=== PATIENT | male | born 1935 | race Caucasian/White ===

== ENCOUNTER 2017-03-21 14:20 | Inpatient (IN) | payer MEDICARE ==
[2017-03-21] VITALS (24 sets, daily range): BP systolic 80–156; BP diastolic 39–98
[~2017-03-21] VITALS: Ht 172.7 cm; Wt 64.4 kg
[~2017-03-21 14:20] MED LIST: ALLO100T PO; AMLO10TA80 PO; CARV6.2548 PO; CYCL10TA7 PO; FINA5TAB11 PO; HYDR-4135 PO; LOVA40TA73 PO; NEPVIT PO; OMEP40CA34 PO; SEVE800T8 PO
[2017-03-21] MEDS ORDERED: STERILE WATER FOR INJECTION 10ML VIAL ONE (14:30)
[2017-03-21] MEDS ORDERED: ETOMIDATE 2MG/ML 10ML VIAL IV ONE (14:30)
[2017-03-21] MEDS ORDERED: VECURONIUM BROMIDE 10 MG/VIAL IV ONE (14:30)
[2017-03-21] MEDS ORDERED: SUCCINYLCHOLINE CHLORIDE 200MG/10ML IV ONE (14:30)
[2017-03-21] MEDS ORDERED: NOREPINEPHRINE 4 MG in DEXT 5% WATER 246 ML IV ONE ×2 (14:45→15:30)
[2017-03-21] MEDS ORDERED: SODIUM BICARBONATE 8.4% 1 MEQ/ML 50ML SYR IV ONE (15:30)
[2017-03-21] MEDS ORDERED: OSELTAMIVIR 75MG CAPSULE NG ONE (15:45)
[2017-03-21] MEDS ORDERED: VANCOMYCIN 1 G PREMIX 200 ML IV SCH (15:45)
[2017-03-21] MEDS ORDERED: PIPERACILLIN/TAZ 3.375G PREMIX 50 ML IV ONE (15:45)
[2017-03-21] MEDS ORDERED: PROPOFOL 10MG/ML 100ML 100 ML IV SCH (15:45)
[2017-03-21 15:52] LABS: HEMATOCRIT. 25.5 % (42.0-52.0); HEMOGLOBIN. 8.3 g/dL (14.0-18.0); INR 1.1; MEAN CORPUSCULAR HEMOGLOBIN 32.4 pg (28.0-32.0); MEAN CORPUSCULAR VOLUME 99.1 fL (80.0-94.0); MEAN PLATELET VOLUME 8.5 fl (7.4-10.4); PLATELET 135 x1000/uL (130-400); PROTHROMBIN TIME 11.3 sec (9.4-11.6); RED BLOOD CELL COUNT 2.57 mill/uL (4.7-6.1); RED CELL DISTRIBUTION WIDTH 15.8 % (11.6-14.6)
[2017-03-21 16:04] LABS: CHLORIDE 101 mEq/L (98-107)
[2017-03-21 16:54] LABS: PLATELET ESTIMATE NORMAL
[2017-03-21 17:24] LABS: BG CARBOXYHEMOGLOBIN 3.2 % (0.5-1.5); BG DEOXYHEMOGLOBIN 0.2 % (0.0-5.0); BG FRACTION INSPIRED OXYGEN 100; BG HCO3 ACT 23.9 mmol/L (22.0-26.0); BG METHEMOGLOBIN 0.2 % (0.0-1.5); BG OXYGEN SATURATION 99.8 % (92.0-98.5); BG OXYHEMOGLOBIN 96.4 % (94.0-97.0); BG PCO2 35.4 mmHg (35.0-45.0); BG PH 7.447 (7.350-7.450); BG PO2 438.5 mmHg (75.0-100.0); BG SAMPLE SITE RIGHT BRACHIAL; BG TIDAL VOLUME(mL) 500 mL; BG TOTAL HEMOGLOBIN 8.2 g/dL (12.0-18.0); BG VENT MODE VENT - A/C; BG VENT RATE 16 set
[2017-03-21] MEDS ORDERED: ASPIRIN 300MG SUPP PR ONE (18:00)
[2017-03-21] MEDS ORDERED: DEXTROSE 50% WATER 50ML SYRINGE IV NR ×2 (20:15→20:30)
[2017-03-21] MEDS ORDERED: DEXTROSE 50% WATER 50ML SYRINGE IV ONE (20:17)
[2017-03-21] MEDS ORDERED: DEXTROSE 10% WATER 1,000 ML IV SCH (20:30)
[2017-03-21] MEDS ORDERED: BLOOD SUGAR DIAGNOSTIC STRIP TEST SCH (20:30)
[2017-03-21] MEDS: BLOOD SUGAR DIAGNOSTIC STRIP TEST SCH ×3 (21:00→23:00)
[2017-03-21] MEDS ORDERED: ONDANSETRON HCL 4MG/2ML INJ IV PRN (21:30)
[2017-03-21] MEDS: MORPHINE SULFATE 4 MG/ML CPJ (NOT FOR IM USE) IV PRN (22:31)
[2017-03-21] MEDS: DEXTROSE 50% WATER 50ML SYRINGE IV PRN (23:34)
[2017-03-21 23:49] LABS: T4 FREE 0.88 ng/dL (0.76-1.46)
[2017-03-21 23:58] LABS: CREATINE KINASE MB FRACTION 5.9 ng/mL (0.5-3.6)
[2017-03-22] VITALS (98 sets, daily range): BP systolic 87–145; BP diastolic 41–82
[2017-03-22] MEDS: DEXTROSE 50% WATER 50ML SYRINGE IV PRN ×4 (00:44→13:36)
[2017-03-22] MEDS: BLOOD SUGAR DIAGNOSTIC STRIP TEST SCH ×24 (00:44→23:00)
[2017-03-22] MEDS ORDERED: NOREPINEPHRINE 8 MG in DEXT 5% WATER 242 ML IV PRN (03:45)
[2017-03-22] MEDS ORDERED: OMEP40CA34 PO (04:21)
[2017-03-22] MEDS ORDERED: GABA-529 PO (04:21)
[2017-03-22] MEDS ORDERED: CARV3.1242 PO (04:21)
[2017-03-22] MEDS ORDERED: CALC667T5 PO (04:21)
[2017-03-22] MEDS ORDERED: ASPI-1159 PO (04:21)
[2017-03-22] MEDS ORDERED: ATOR20TA65 PO (04:21)
[2017-03-22] MEDS ORDERED: TAMS0.4C31 PO (04:21)
[2017-03-22 05:36] LABS: HEMATOCRIT. 23.9 % (42.0-52.0); HEMOGLOBIN. 7.7 g/dL (14.0-18.0); MEAN CORPUSCULAR HEMOGLOBIN 31.8 pg (28.0-32.0); MEAN CORPUSCULAR VOLUME 98.3 fL (80.0-94.0); MEAN PLATELET VOLUME 8.7 fl (7.4-10.4); PLATELET 169 x1000/uL (130-400); RED BLOOD CELL COUNT 2.43 mill/uL (4.7-6.1); RED CELL DISTRIBUTION WIDTH 15.9 % (11.6-14.6)
[2017-03-22 06:22] LABS: CHLORIDE 97 mEq/L (98-107); CREATINE KINASE 31 IU/L (39-308); CREATINE KINASE MB FRACTION 3.6 ng/mL (0.5-3.6); HDL CHOLESTEROL 59 mg/dL (40-59); LDL CHOLESTEROL 31 mg/dL (5-100)
[2017-03-22 07:08] LABS: BG BASE EXCESS 7.1 mmol/L (-2.0-2.0); BG CARBOXYHEMOGLOBIN 3.7 % (0.5-1.5); BG DEOXYHEMOGLOBIN 0.3 % (0.0-5.0); BG METHEMOGLOBIN 0.3 % (0.0-1.5); BG OXYGEN SATURATION 99.7 % (92.0-98.5); BG OXYHEMOGLOBIN 95.7 % (94.0-97.0); BG PCO2 41.3 mmHg (35.0-45.0); BG PH 7.493 (7.350-7.450); BG PO2 163.1 mmHg (75.0-100.0); BG SAMPLE SITE RIGHT BRACHIAL; BG TIDAL VOLUME(mL) 500 mL; BG TOTAL HEMOGLOBIN 7.5 g/dL (12.0-18.0); BG VENT MODE VENT - A/C; BG VENT RATE 16 set
[2017-03-22] MEDS: PANTOPRAZOLE SODIUM 40 MG/VIAL IV SCH (11:03)
[2017-03-22] MEDS: ASPIRIN 81MG EC TABLET PO SCH (11:07)
[2017-03-22] MEDS ORDERED: DEXTROSE 10% WATER 1000ML IV SCH (11:15)
[2017-03-22 11:48] LABS: NUCLEATED RED BLOOD CELLS 1 /100 WBC
[2017-03-22 11:50] LABS: PLATELET ESTIMATE NORMAL
[2017-03-22] MEDS: MORPHINE SULFATE 4 MG/ML CPJ (NOT FOR IM USE) IV PRN (13:31)
[2017-03-22] MEDS ORDERED: VANCOMYCIN 1500MG in DEXTROSE 5% WATER 250ML IV SCH (16:00)
[2017-03-22] MEDS: LORAZEPAM 2MG/ML CPJ IV PRN (20:58)
[2017-03-22] MEDS: HEPARIN 5000 UNITS/ML VIAL SUBCUT SCH (22:24)
[2017-03-23] VITALS (56 sets, daily range): BP systolic 90–175; BP diastolic 38–116
[2017-03-23] MEDS: BLOOD SUGAR DIAGNOSTIC STRIP TEST SCH ×4 (00:51→20:00)
[2017-03-23 05:32] LABS: HEMATOCRIT 22.5 % (42.0-52.0); HEMOGLOBIN 7.3 g/dL (14.0-18.0); MEAN CORPUSCULAR HEMOGLOBIN 31.3 pg (28.0-32.0); PLATELET 150 x1000/uL (130-400); RED BLOOD CELL COUNT 2.32 mill/uL (4.7-6.1); RED CELL DISTRIBUTION WIDTH 16.5 % (11.6-14.6)
[2017-03-23] MEDS ORDERED: BLOOD SUGAR DIAGNOSTIC STRIP TEST SCH (08:00)
[2017-03-23] MEDS: PANTOPRAZOLE SODIUM 40 MG/VIAL IV SCH (08:57)
[2017-03-23] MEDS: ASPIRIN 81MG EC TABLET PO SCH (08:57)
[2017-03-23] MEDS: HEPARIN 5000 UNITS/ML VIAL SUBCUT SCH ×2 (09:00→21:43)
[2017-03-23] MEDS: LORAZEPAM 2MG/ML CPJ IV PRN (15:15)
[2017-03-23] MEDS ORDERED: METHYLPREDNISOLONE SOD SUCC 40 MG/ML VIAL IV NR (18:37)
[2017-03-23] MEDS: MORPHINE SULFATE 4 MG/ML CPJ (NOT FOR IM USE) IV PRN (20:14)
[2017-03-23 20:39] LABS: BG BASE EXCESS 3.1 mmol/L (-2.0-2.0); BG DEOXYHEMOGLOBIN 11.8 % (0.0-5.0); BG FRACTION INSPIRED OXYGEN 40; BG HCO3 ACT 28.3 mmol/L (22.0-26.0); BG METHEMOGLOBIN 0.3 % (0.0-1.5); BG OXYGEN SATURATION 87.8 % (92.0-98.5); BG OXYHEMOGLOBIN 84.9 % (94.0-97.0); BG PH 7.398 (7.350-7.450); BG PO2 55.7 mmHg (75.0-100.0); BG PRESSURE SUPPORT 10; BG SAMPLE SITE LEFT RADIAL; BG TOTAL HEMOGLOBIN 7.8 g/dL (12.0-18.0); BG VENT MODE VENT - CPAP
[2017-03-23] MEDS ORDERED: ACETAMINOPHEN 650MG/20.3ML UDC PO PRN (21:15)
[2017-03-24] VITALS (24 sets, daily range): BP systolic 88–125; BP diastolic 36–60
[2017-03-24] MEDS: PIPERACILLIN/TAZOBACTAM 2.25 G in DEXTROSE 5% WATER 50 ML IV SCH ×3 (02:21→18:00)
[2017-03-24] MEDS: BLOOD SUGAR DIAGNOSTIC STRIP TEST SCH ×6 (04:40→20:00)
[2017-03-24 06:27] LABS: HEMATOCRIT. 24.8 % (42.0-52.0); HEMOGLOBIN. 8.1 g/dL (14.0-18.0); MEAN CORPUSCULAR HEMOGLOBIN 31.1 pg (28.0-32.0); MEAN CORPUSCULAR VOLUME 94.9 fL (80.0-94.0); MEAN PLATELET VOLUME 8.9 fl (7.4-10.4); PLATELET 143 x1000/uL (130-400); RED BLOOD CELL COUNT 2.62 mill/uL (4.7-6.1)
[2017-03-24 07:53] LABS: BG BASE EXCESS 0.7 mmol/L (-2.0-2.0); BG CARBOXYHEMOGLOBIN 1.8 % (0.5-1.5); BG DEOXYHEMOGLOBIN 0.2 % (0.0-5.0); BG FRACTION INSPIRED OXYGEN 50; BG HCO3 ACT 27.7 mmol/L (22.0-26.0); BG METHEMOGLOBIN 0.2 % (0.0-1.5); BG OXYGEN SATURATION 99.8 % (92.0-98.5); BG OXYHEMOGLOBIN 97.8 % (94.0-97.0); BG PCO2 58.3 mmHg (35.0-45.0); BG PH 7.295 (7.350-7.450); BG PO2 196.4 mmHg (75.0-100.0); BG PRESSURE SUPPORT 10; BG SAMPLE SITE RIGHT RADIAL; BG TOTAL HEMOGLOBIN 8.6 g/dL (12.0-18.0); BG VENT MODE VENT - CPAP
[2017-03-24 08:21] LABS: PLATELET ESTIMATE NORMAL
[2017-03-24] MEDS: PANTOPRAZOLE SODIUM 40 MG/VIAL IV SCH (09:00)
[2017-03-24] MEDS: ASPIRIN 81MG EC TABLET PO SCH (09:01)
[2017-03-24] MEDS: HEPARIN 5000 UNITS/ML VIAL SUBCUT SCH ×2 (09:01→22:34)
[2017-03-24 12:58] LABS: BG BASE EXCESS 0.6 mmol/L (-2.0-2.0); BG DEOXYHEMOGLOBIN 0.7 % (0.0-5.0); BG FRACTION INSPIRED OXYGEN 40; BG HCO3 ACT 27.4 mmol/L (22.0-26.0); BG METHEMOGLOBIN 0.2 % (0.0-1.5); BG OXYGEN SATURATION 99.3 % (92.0-98.5); BG OXYHEMOGLOBIN 96.1 % (94.0-97.0); BG PCO2 56.6 mmHg (35.0-45.0); BG PH 7.303 (7.350-7.450); BG PO2 125.5 mmHg (75.0-100.0); BG PRESSURE SUPPORT 10; BG SAMPLE SITE RIGHT RADIAL; BG TOTAL HEMOGLOBIN 8.5 g/dL (12.0-18.0); BG VENT MODE VENT - CPAP
[2017-03-24] MEDS ORDERED: METOCLOPRAMIDE HCL 10MG/2ML VIAL IV SCH (18:00)
[2017-03-24] MEDS ORDERED: METOCLOPRAMIDE 10MG/10 ML UDC PO PRN (19:30)
[2017-03-24 21:29] LABS: BG BASE EXCESS -0.1 mmol/L (-2.0-2.0); BG DEOXYHEMOGLOBIN 4.2 % (0.0-5.0); BG FRACTION INSPIRED OXYGEN 40; BG HCO3 ACT 27.6 mmol/L (22.0-26.0); BG METHEMOGLOBIN 0.2 % (0.0-1.5); BG OXYGEN SATURATION 95.7 % (92.0-98.5); BG OXYHEMOGLOBIN 93.6 % (94.0-97.0); BG PCO2 62.6 mmHg (35.0-45.0); BG PH 7.262 (7.350-7.450); BG PO2 86.7 mmHg (75.0-100.0); BG SAMPLE SITE RIGHT RADIAL; BG TOTAL HEMOGLOBIN 9.1 g/dL (12.0-18.0); BG VENT MODE MASK - AEROSOL
[2017-03-24] MEDS: EPOETIN ALFA 4000UNITS/ML VIAL SUBCUT SCH (22:34)
[2017-03-25] VITALS (35 sets, daily range): BP systolic 79–117; BP diastolic 42–87
[2017-03-25] MEDS: PIPERACILLIN/TAZOBACTAM 2.25 G in DEXTROSE 5% WATER 50 ML IV SCH ×2 (01:52→10:06)
[2017-03-25] MEDS: BLOOD SUGAR DIAGNOSTIC STRIP TEST SCH ×6 (04:00→20:00)
[2017-03-25 04:44] LABS: HEMATOCRIT. 26.3 % (42.0-52.0); HEMOGLOBIN. 8.5 g/dL (14.0-18.0); MEAN CORPUSCULAR HEMOGLOBIN 30.9 pg (28.0-32.0); MEAN CORPUSCULAR VOLUME 95.5 fL (80.0-94.0); MEAN PLATELET VOLUME 8.5 fl (7.4-10.4); PLATELET 136 x1000/uL (130-400); RED BLOOD CELL COUNT 2.75 mill/uL (4.7-6.1); RED CELL DISTRIBUTION WIDTH 17.6 % (11.6-14.6)
[2017-03-25 05:14] LABS: BG BASE EXCESS -2.6 mmol/L (-2.0-2.0); BG CARBOXYHEMOGLOBIN 2.3 % (0.5-1.5); BG DEOXYHEMOGLOBIN 1.6 % (0.0-5.0); BG FRACTION INSPIRED OXYGEN 35; BG HCO3 ACT 23.6 mmol/L (22.0-26.0); BG METHEMOGLOBIN 0.2 % (0.0-1.5); BG OXYGEN SATURATION 98.4 % (92.0-98.5); BG OXYHEMOGLOBIN 95.9 % (94.0-97.0); BG PCO2 47.9 mmHg (35.0-45.0); BG PH 7.311 (7.350-7.450); BG PO2 110.7 mmHg (75.0-100.0); BG SAMPLE SITE RIGHT RADIAL; BG VENT MODE MASK - BIPAP; BG VENT RATE 16 set
[2017-03-25] MEDS ORDERED: ALBUMIN HUMAN 25GM/100ML (25%) IV SCH (05:45)
[2017-03-25 06:16] LABS: PHOSPHORUS 6.2 mg/dL (2.5-4.9)
[2017-03-25] MEDS: HEPARIN 5000 UNITS/ML VIAL SUBCUT SCH ×2 (10:06→21:00)
[2017-03-25] MEDS: PANTOPRAZOLE SODIUM 40 MG/VIAL IV SCH (10:06)
[2017-03-25] MEDS: ASPIRIN 81MG EC TABLET PO SCH (10:06)
[2017-03-25 10:09] LABS: PLATELET ESTIMATE NORMAL
[2017-03-25] MEDS ORDERED: VANCOMYCIN 1 G PREMIX 200 ML IV NR ×2 (13:00→16:00)
[2017-03-25] MEDS: PIPERACILLIN/TAZ 2.25G PREMIX 50 ML IV SCH (19:27)
[2017-03-26] VITALS (16 sets, daily range): BP systolic 96–120; BP diastolic 36–61
[2017-03-26] MEDS: PIPERACILLIN/TAZ 2.25G PREMIX 50 ML IV SCH ×3 (01:57→17:05)
[2017-03-26] MEDS: BLOOD SUGAR DIAGNOSTIC STRIP TEST SCH ×5 (04:00→20:44)
[2017-03-26] MEDS: PANTOPRAZOLE SODIUM 40 MG/VIAL IV SCH (08:26)
[2017-03-26] MEDS: ASPIRIN 81MG EC TABLET PO SCH (08:26)
[2017-03-26] MEDS: HEPARIN 5000 UNITS/ML VIAL SUBCUT SCH ×2 (09:29→21:06)
[2017-03-26] MEDS: EPOETIN ALFA 4000UNITS/ML VIAL SUBCUT SCH (21:47)
[2017-03-27] VITALS (12 sets, daily range): BP systolic 102–141; BP diastolic 43–70
[2017-03-27] MEDS: PIPERACILLIN/TAZ 2.25G PREMIX 50 ML IV SCH ×3 (01:49→17:08)
[2017-03-27 06:19] LABS: BASOPHILS % 0.2 % (0.0-2.0); EOSINOPHILS % 2.3 % (0.0-5.0); HEMATOCRIT. 26.9 % (42.0-52.0); HEMOGLOBIN. 8.6 g/dL (14.0-18.0); LYMPHOCYTES % 8.2 % (20.0-50.0); MEAN CORPUSCULAR HEMOGLOBIN 30.4 pg (28.0-32.0); MEAN CORPUSCULAR VOLUME 95.1 fL (80.0-94.0); MEAN PLATELET VOLUME 9.2 fl (7.4-10.4); MONOCYTES % 6.2 % (2.0-8.0); NEUTROPHILS % 83.1 % (40.0-76.0); PLATELET 175 x1000/uL (130-400); RED BLOOD CELL COUNT 2.83 mill/uL (4.7-6.1); RED CELL DISTRIBUTION WIDTH 17.2 % (11.6-14.6)
[2017-03-27] MEDS: BLOOD SUGAR DIAGNOSTIC STRIP TEST SCH ×4 (06:54→21:28)
[2017-03-27] MEDS: PANTOPRAZOLE SODIUM 40 MG/VIAL IV SCH (08:18)
[2017-03-27] MEDS: ASPIRIN 81MG EC TABLET PO SCH (08:18)
[2017-03-27] MEDS: HEPARIN 5000 UNITS/ML VIAL SUBCUT SCH ×2 (08:19→21:28)
[2017-03-27 14:49] LABS: BG BASE EXCESS 3.5 mmol/L (-2.0-2.0); BG CARBOXYHEMOGLOBIN 2.6 % (0.5-1.5); BG DEOXYHEMOGLOBIN 3.7 % (0.0-5.0); BG FRACTION INSPIRED OXYGEN 28; BG HCO3 ACT 29.9 mmol/L (22.0-26.0); BG METHEMOGLOBIN 0.3 % (0.0-1.5); BG OXYGEN SATURATION 96.2 % (92.0-98.5); BG OXYHEMOGLOBIN 93.4 % (94.0-97.0); BG PCO2 55.9 mmHg (35.0-45.0); BG PH 7.346 (7.350-7.450); BG PO2 82.8 mmHg (75.0-100.0); BG SAMPLE SITE RIGHT BRACHIAL; BG VENT MODE NASAL CANNULA
[2017-03-28] VITALS (12 sets, daily range): BP systolic 126–147; BP diastolic 57–79
[2017-03-28] MEDS: PIPERACILLIN/TAZ 2.25G PREMIX 50 ML IV SCH ×3 (01:34→17:10)
[2017-03-28] MEDS: BLOOD SUGAR DIAGNOSTIC STRIP TEST SCH ×4 (06:38→20:43)
[2017-03-28] MEDS: ASPIRIN 81MG EC TABLET PO SCH (08:29)
[2017-03-28] MEDS: HEPARIN 5000 UNITS/ML VIAL SUBCUT SCH ×2 (08:29→20:11)
[2017-03-28] MEDS: PANTOPRAZOLE SODIUM 40 MG/VIAL IV SCH (08:29)
[2017-03-28 15:20] LABS: HEMATOCRIT. 24.7 % (42.0-52.0); HEMOGLOBIN. 8.1 g/dL (14.0-18.0); MEAN CORPUSCULAR VOLUME 94.7 fL (80.0-94.0); PLATELET 174 x1000/uL (130-400); RED BLOOD CELL COUNT 2.61 mill/uL (4.7-6.1); RED CELL DISTRIBUTION WIDTH 17.2 % (11.6-14.6)
[2017-03-28 16:08] LABS: ATYPICAL LYMPHOCYTES 1; PLATELET ESTIMATE NORMAL
[2017-03-28] MEDS ORDERED: VANCOMYCIN 500 MG PREMIX 100 ML IV SCH (20:00)
[2017-03-29] VITALS (12 sets, daily range): BP systolic 116–146; BP diastolic 50–73
[2017-03-29] MEDS: PIPERACILLIN/TAZ 2.25G PREMIX 50 ML IV SCH ×3 (02:04→17:01)
[2017-03-29] MEDS: BLOOD SUGAR DIAGNOSTIC STRIP TEST SCH ×4 (06:24→21:07)
[2017-03-29 06:37] LABS: HEMATOCRIT. 26.2 % (42.0-52.0); HEMOGLOBIN. 8.7 g/dL (14.0-18.0); MEAN CORPUSCULAR HEMOGLOBIN 31.5 pg (28.0-32.0); MEAN CORPUSCULAR VOLUME 94.8 fL (80.0-94.0); MEAN PLATELET VOLUME 9.3 fl (7.4-10.4); PLATELET 185 x1000/uL (130-400); RED BLOOD CELL COUNT 2.76 mill/uL (4.7-6.1); RED CELL DISTRIBUTION WIDTH 17.5 % (11.6-14.6)
[2017-03-29] MEDS ORDERED: NITROGLYCERIN 0.4MG TABLET SL SL ONE (08:01)
[2017-03-29] MEDS: PANTOPRAZOLE SODIUM 40 MG/VIAL IV SCH (08:24)
[2017-03-29] MEDS: HEPARIN 5000 UNITS/ML VIAL SUBCUT SCH (08:24)
[2017-03-29] MEDS: ASPIRIN 81MG EC TABLET PO SCH (08:24)
[2017-03-29] MEDS ORDERED: HYDROCODONE/ACETAMINOPHEN 5/325MG TABLET PO PRN (08:30)
[2017-03-29] MEDS ORDERED: IODIXANOL 320MG/ML 100 ML BOTTLE IV ONE (12:52)
[2017-03-29] MEDS ORDERED: HEPARIN 1,000 UNITS PREMIX 0 ML IV ONE (12:53)
[2017-03-29] MEDS ORDERED: LIDOCAINE HCL 1% 20ML VIAL (Pyxis) INJ ONE (12:53)
[2017-03-29] MEDS ORDERED: FENTANYL CITRATE/PF 50MCG/ML 2ML VIAL ONE (14:23)
[2017-03-29] MEDS ORDERED: MIDAZOLAM HCL 2 MG/2 ML VIAL ONE (14:23)
[2017-03-29 14:57] LABS: PLATELET ESTIMATE NORMAL
[2017-03-29] MEDS ORDERED: ATROPINE SULFATE 1MG/10ML SYR IV PRN (15:15)
[2017-03-29] MEDS ORDERED: ACETAMINOPHEN 325MG TABLET PO PRN (15:15)
[2017-03-29] MEDS: EPOETIN ALFA 4000UNITS/ML VIAL SUBCUT SCH (21:00)
[2017-03-29] MEDS: ATORVASTATIN CALCIUM 20MG TABLET PO SCH (21:42)
[2017-03-29] MEDS: CARVEDILOL 6.25 MG TABLET PO SCH (21:42)
[2017-03-29] MEDS ORDERED: EPOETIN ALFA 4000UNITS/ML VIAL SUBCUT SCH (23:30)
[2017-03-30] VITALS (20 sets, daily range): BP systolic 106–128; BP diastolic 46–66
[2017-03-30] MEDS: PIPERACILLIN/TAZ 2.25G PREMIX 50 ML IV SCH ×3 (02:31→17:20)
[2017-03-30] MEDS: BLOOD SUGAR DIAGNOSTIC STRIP TEST SCH ×4 (06:11→21:00)
[2017-03-30 06:53] LABS: BASOPHILS % 0.6 % (0.0-2.0); EOSINOPHILS % 3.9 % (0.0-5.0); HEMOGLOBIN. 7.6 g/dL (14.0-18.0); LYMPHOCYTES % 7.5 % (20.0-50.0); MEAN CORPUSCULAR HEMOGLOBIN 31.7 pg (28.0-32.0); MEAN CORPUSCULAR VOLUME 95.7 fL (80.0-94.0); MEAN PLATELET VOLUME 9.4 fl (7.4-10.4); MONOCYTES % 5.9 % (2.0-8.0); NEUTROPHILS % 82.1 % (40.0-76.0); PLATELET 150 x1000/uL (130-400); RED CELL DISTRIBUTION WIDTH 17.5 % (11.6-14.6)
[2017-03-30] MEDS: ASPIRIN 81MG EC TABLET PO SCH (08:26)
[2017-03-30] MEDS: FAMOTIDINE 20MG TABLET PO SCH (08:26)
[2017-03-30] MEDS: CARVEDILOL 6.25 MG TABLET PO SCH ×2 (08:27→22:10)
[2017-03-30] MEDS ORDERED: IPRATROPIUM/ALBUTEROL 0.5-3(2.5)MG/3ML NEB HHN PRN (16:15)
[2017-03-30] MEDS ORDERED: FUROSEMIDE 40MG/4ML VIAL IVP NR (16:22)
[2017-03-30] MEDS: ATORVASTATIN CALCIUM 20MG TABLET PO SCH (20:54)
[2017-03-31] VITALS (31 sets, daily range): BP systolic 100–139; BP diastolic 31–63
[2017-03-31] MEDS: PIPERACILLIN/TAZ 2.25G PREMIX 50 ML IV SCH ×3 (02:02→18:28)
[2017-03-31] MEDS: BLOOD SUGAR DIAGNOSTIC STRIP TEST SCH ×2 (05:54→11:22)
[2017-03-31 06:10] LABS: HEMATOCRIT. 27.3 % (42.0-52.0); MEAN CORPUSCULAR VOLUME 94.7 fL (80.0-94.0); PLATELET 138 x1000/uL (130-400); RED BLOOD CELL COUNT 2.89 mill/uL (4.7-6.1); RED CELL DISTRIBUTION WIDTH 17.5 % (11.6-14.6)
[2017-03-31 07:49] LABS: NUCLEATED RED BLOOD CELLS 1 /100 WBC
[2017-03-31 07:50] LABS: PLATELET ESTIMATE NORMAL
[2017-03-31] MEDS: FAMOTIDINE 20MG TABLET PO SCH (08:02)
[2017-03-31] MEDS: ASPIRIN 81MG EC TABLET PO SCH (08:02)
[2017-03-31] MEDS: CARVEDILOL 6.25 MG TABLET PO SCH (08:03)
== END 2017-03-31 19:30 | DRG 871 ==
LOC: ER 14:26 → EDBEDREQSVC 15:29 → EDBEDREQ 15:29 → EDBEDREQTM 15:29 → ENRESERV 15:48 → CVICU 17:55 → EDBEDREQTM 17:59 → EDBEDREQ 17:59 → 3WST 03-26 01:28
PROVIDERS: ADMIT Internal Medicine; ATTEND Internal Medicine
PROC: 5A1945Z Respiratory Ventilation, 24-96 Consecutive Hours (ICD-10-PCS; principal; 2017-03-21)
PROC: 0BH17EZ Insertion of Endotracheal Airway into Trachea, Via Natural or Artificial Opening (ICD-10-PCS; 2017-03-21)
PROC: 5A1D70Z Performance of Urinary Filtration, Intermittent, Less than 6 Hours Per Day (ICD-10-PCS; 2017-03-22)
PROC: 30233N1 Transfusion of Nonautologous Red Blood Cells into Peripheral Vein, Percutaneous Approach (ICD-10-PCS; 2017-03-23)
PROC: 5A1D70Z Performance of Urinary Filtration, Intermittent, Less than 6 Hours Per Day (ICD-10-PCS; 2017-03-23)
PROC: 5A1D70Z Performance of Urinary Filtration, Intermittent, Less than 6 Hours Per Day (ICD-10-PCS; 2017-03-25)
PROC: 5A1D70Z Performance of Urinary Filtration, Intermittent, Less than 6 Hours Per Day (ICD-10-PCS; 2017-03-27)
PROC: 4A023N7 Measurement of Cardiac Sampling and Pressure, Left Heart, Percutaneous Approach (ICD-10-PCS; 2017-03-29)
PROC: B2111ZZ Fluoroscopy of Multiple Coronary Arteries using Low Osmolar Contrast (ICD-10-PCS; 2017-03-29)
PROC: B2151ZZ Fluoroscopy of Left Heart using Low Osmolar Contrast (ICD-10-PCS; 2017-03-29)
PROC: 5A1D70Z Performance of Urinary Filtration, Intermittent, Less than 6 Hours Per Day (ICD-10-PCS; 2017-03-29)
PROC: 5A1D70Z Performance of Urinary Filtration, Intermittent, Less than 6 Hours Per Day (ICD-10-PCS; 2017-03-30)
PROC: 5A1D70Z Performance of Urinary Filtration, Intermittent, Less than 6 Hours Per Day (ICD-10-PCS; 2017-03-31)
DX: A41.9 Sepsis, unspecified organism (principal); J18.9 Pneumonia, unspecified organism; I21.4 Non-ST elevation (NSTEMI) myocardial infarction; J96.91 Respiratory failure, unspecified with hypoxia; E43 Unspecified severe protein-calorie malnutrition; R65.21 Severe sepsis with septic shock; G92 Toxic encephalopathy; J90 Pleural effusion, not elsewhere classified; E11.22 Type 2 diabetes mellitus with diabetic chronic kidney disease; N18.6 End stage renal disease; I12.0 Hypertensive chronic kidney disease with stage 5 chronic kidney disease or end stage renal disease; I25.110 Atherosclerotic heart disease of native coronary artery with unstable angina pectoris; N25.81 Secondary hyperparathyroidism of renal origin; E11.649 Type 2 diabetes mellitus with hypoglycemia without coma; D64.9 Anemia, unspecified; E78.5 Hyperlipidemia, unspecified; M19.90 Unspecified osteoarthritis, unspecified site; Z99.2 Dependence on renal dialysis; I25.2 Old myocardial infarction; Z79.899 Other long term (current) drug therapy; Z86.73 Personal history of transient ischemic attack (TIA), and cerebral infarction without residual deficits; Z88.5 Allergy status to narcotic agent; Z88.6 Allergy status to analgesic agent; Z88.1 Allergy status to other antibiotic agents; Z88.8 Allergy status to other drugs, medicaments and biological substances; Z68.21 Body mass index [BMI] 21.0-21.9, adult
CPT/HCPCS: 31500; 36415; 36556; 36600; 71045; 71275; 80048; 80061; 80202; 82140; 82375; 82533; 82550; 82553; 82805; 82962; 83605; 83735; 83880; 84100; 84439; 84443; 84484; 85027; 86850; 86900; 86920; 87070; 87804; 93005; 93306; 93458; 93971; 94002; 94003; 94640; 94660; 96365; 96366; 96368; 96375; 97162; 99291; A4216; C1760; C1769; C1887; C1893; C9113; J0330; J0885; J1644; J1940; J2060; J2250; J2270; J2543; J2920; J3010; J3370; J3490; J7030; J7050; J7060; J7620; J8597; P9016; P9047; Q9967; A4315

== ENCOUNTER 2017-04-05 10:39 | Inpatient (IN) | payer MEDICARE ==
[~2017-04-05] VITALS: Ht 167.6 cm; Wt 61.2 kg
[~2017-04-05 10:39] MED LIST changes: +ASPI-1159 PO; +ATOR20TA65 PO; +CALC667T5 PO; +CARV3.1242 PO; -CARV6.2548 PO; +GABA-529 PO; +TAMS0.4C31 PO
[2017-04-05] MEDS ORDERED: NITROGLYCERIN OINT 1GM/INCH UDPKT TD STA (10:50)
[2017-04-05] MEDS ORDERED: ASPIRIN 81MG TABLET PO STA (10:50)
[2017-04-05 11:20] LABS: HEMATOCRIT. 30.8 % (42.0-52.0); MEAN CORPUSCULAR HEMOGLOBIN 30.8 pg (28.0-32.0); MEAN CORPUSCULAR VOLUME 95.2 fL (80.0-94.0); MEAN PLATELET VOLUME 9.5 fl (7.4-10.4); PLATELET 157 x1000/uL (130-400); RED BLOOD CELL COUNT 3.23 mill/uL (4.7-6.1); RED CELL DISTRIBUTION WIDTH 18.4 % (11.6-14.6)
[2017-04-05 11:29] LABS: INR 1.1; PARTIAL THROMBOPLASTIN TIME 27.2 sec (23.4-31.0); PROTHROMBIN TIME 11.9 sec (9.4-11.6)
[2017-04-05 11:34] LABS: CHLORIDE 99 mEq/L (98-107)
[2017-04-05 11:37] LABS: TROPONIN I 0.11 ng/mL (0.00-0.04)
[2017-04-05 12:01] LABS: PLATELET ESTIMATE NORMAL
[2017-04-05 15:44] VITALS: BP 125/78
[2017-04-05 15:55] VITALS: BP 114/45
[2017-04-05] MEDS ORDERED: GABAPENTIN 100MG CAPSULE PO SCH (18:15)
[2017-04-05 20:00] VITALS: BP 113/50
[2017-04-05] MEDS: HYDRALAZINE HCL 50MG TABLET PO SCH (21:07)
[2017-04-05] MEDS ORDERED: VANCOMYCIN 1 G PREMIX 200 ML IV STA (21:26)
[2017-04-05] MEDS ORDERED: IPRATROPIUM/ALBUTEROL 0.5-3(2.5)MG/3ML NEB HHN PRN (21:30)
[2017-04-05] MEDS ORDERED: DEXTROSE 50% WATER 50ML SYRINGE IV PRN (21:30)
[2017-04-05] MEDS ORDERED: VANCOMYCIN 1250MG in DEXTROSE 5% WATER 250ML IV SCH (23:30)
[2017-04-06] VITALS (7 sets, daily range): BP systolic 94–117; BP diastolic 35–72
[2017-04-06] MEDS: PIPERACILLIN/TAZOBACTAM 2.25 G in DEXTROSE 5% WATER 50 ML IV SCH ×4 (00:16→22:19)
[2017-04-06 06:59] LABS: INR 1.1; PROTHROMBIN TIME 11.9 sec (9.4-11.6)
[2017-04-06 07:27] LABS: BASOPHILS % 1.1 % (0.0-2.0); EOSINOPHILS % 3.9 % (0.0-5.0); HEMATOCRIT. 27.7 % (42.0-52.0); HEMOGLOBIN. 8.9 g/dL (14.0-18.0); LYMPHOCYTES % 8.1 % (20.0-50.0); MEAN CORPUSCULAR HEMOGLOBIN 31.4 pg (28.0-32.0); MEAN CORPUSCULAR VOLUME 97.7 fL (80.0-94.0); MONOCYTES % 8.7 % (2.0-8.0); NEUTROPHILS % 78.2 % (40.0-76.0); PLATELET 114 x1000/uL (130-400); RED BLOOD CELL COUNT 2.83 mill/uL (4.7-6.1); RED CELL DISTRIBUTION WIDTH 19.7 % (11.6-14.6)
[2017-04-06 08:28] LABS: CHLORIDE 102 mEq/L (98-107); PHOSPHORUS 6.3 mg/dL (2.5-4.9)
[2017-04-06] MEDS: AMLODIPINE 10MG TABLET PO SCH (09:00)
[2017-04-06] MEDS: TAMSULOSIN HCL 0.4MG SR CAPSULE PO SCH (09:00)
[2017-04-06] MEDS: CARVEDILOL 3.125 MG TABLET PO SCH ×2 (09:00→17:00)
[2017-04-06] MEDS: FINASTERIDE 5MG TABLET PO SCH (09:00)
[2017-04-06] MEDS: HYDRALAZINE HCL 50MG TABLET PO SCH ×4 (09:00→21:00)
[2017-04-06] MEDS: ASPIRIN 81MG EC TABLET PO SCH (09:00)
[2017-04-06] MEDS: SEVELAMER CARBONATE 800 MG TABLET PO SCH ×3 (09:20→17:15)
[2017-04-06] MEDS: ALLOPURINOL 100 MG TABLET PO SCH (09:22)
[2017-04-06] MEDS: ATORVASTATIN CALCIUM 20MG TABLET PO SCH (09:22)
[2017-04-06] MEDS: FOLIC ACID/VITAMIN B COMP W-C TABLET PO SCH (09:22)
[2017-04-06] MEDS ORDERED: HYDROCODONE/ACETAMINOPHEN 5/325MG TABLET PO PRN (11:15)
[2017-04-06] MEDS ORDERED: SODIUM BICARBONATE 4% (2.4MEQ) 5ML VIAL IV ONE (11:15)
[2017-04-06] MEDS: MORPHINE SULFATE 2 MG/ML CPJ (NOT FOR IM USE) IV PRN (13:51)
[2017-04-06] MEDS ORDERED: ALBUMIN HUMAN 25GM/100ML (25%) IV NR (18:00)
[2017-04-07] VITALS (7 sets, daily range): BP systolic 98–171; BP diastolic 38–97
[2017-04-07] MEDS: PIPERACILLIN/TAZOBACTAM 2.25 G in DEXTROSE 5% WATER 50 ML IV SCH (06:30)
[2017-04-07] MEDS: FOLIC ACID/VITAMIN B COMP W-C TABLET PO SCH (08:21)
[2017-04-07] MEDS: SEVELAMER CARBONATE 800 MG TABLET PO SCH ×3 (08:21→17:25)
[2017-04-07] MEDS: HYDRALAZINE HCL 50MG TABLET PO SCH (08:21)
[2017-04-07] MEDS: ATORVASTATIN CALCIUM 20MG TABLET PO SCH (08:21)
[2017-04-07] MEDS: ALLOPURINOL 100 MG TABLET PO SCH (08:21)
[2017-04-07] MEDS: FINASTERIDE 5MG TABLET PO SCH (08:21)
[2017-04-07] MEDS: ASPIRIN 81MG EC TABLET PO SCH (08:21)
[2017-04-07] MEDS: CARVEDILOL 3.125 MG TABLET PO SCH ×2 (08:22→17:21)
[2017-04-07] MEDS: AMLODIPINE 10MG TABLET PO SCH (08:22)
[2017-04-07] MEDS: TAMSULOSIN HCL 0.4MG SR CAPSULE PO SCH (08:22)
[2017-04-07] MEDS: MORPHINE SULFATE 2 MG/ML CPJ (NOT FOR IM USE) IV PRN (08:42)
[2017-04-07 12:08] LABS: BG BASE EXCESS 7.1 mmol/L (-2.0-2.0); BG CARBOXYHEMOGLOBIN 1.4 % (0.5-1.5); BG DEOXYHEMOGLOBIN 3.2 % (0.0-5.0); BG FRACTION INSPIRED OXYGEN 28; BG HCO3 ACT 34.3 mmol/L (22.0-26.0); BG METHEMOGLOBIN 0.3 % (0.0-1.5); BG OXYGEN SATURATION 96.7 % (92.0-98.5); BG OXYHEMOGLOBIN 95.1 % (94.0-97.0); BG PCO2 66.8 mmHg (35.0-45.0); BG PH 7.329 (7.350-7.450); BG PO2 93.5 mmHg (75.0-100.0); BG SAMPLE SITE RIGHT BRACHIAL; BG TOTAL HEMOGLOBIN 8.9 g/dL (12.0-18.0); BG VENT MODE NASAL CANNULA
[2017-04-07 12:15] LABS: BASOPHILS % 0.9 % (0.0-2.0); EOSINOPHILS % 5.5 % (0.0-5.0); HEMATOCRIT. 26.5 % (42.0-52.0); HEMOGLOBIN. 8.7 g/dL (14.0-18.0); MEAN CORPUSCULAR HEMOGLOBIN 32.1 pg (28.0-32.0); MEAN CORPUSCULAR VOLUME 97.6 fL (80.0-94.0); MEAN PLATELET VOLUME 9.5 fl (7.4-10.4); MONOCYTES % 8.4 % (2.0-8.0); NEUTROPHILS % 76.2 % (40.0-76.0); PLATELET 97 x1000/uL (130-400); RED BLOOD CELL COUNT 2.71 mill/uL (4.7-6.1); RED CELL DISTRIBUTION WIDTH 18.3 % (11.6-14.6)
[2017-04-07] MEDS: PIPERACILLIN/TAZ 2.25G PREMIX 50 ML IV SCH ×2 (15:32→22:20)
[2017-04-07] MEDS: METHYLPREDNISOLONE SOD SUCC 40 MG/ML VIAL IV SCH ×2 (15:36→22:20)
[2017-04-07] MEDS: IPRATROPIUM/ALBUTEROL 0.5-3(2.5)MG/3ML NEB HHN SCH (17:20)
[2017-04-07 18:52] LABS: BG BASE EXCESS 3.6 mmol/L (-2.0-2.0); BG DEOXYHEMOGLOBIN 1.6 % (0.0-5.0); BG FRACTION INSPIRED OXYGEN 50; BG HCO3 ACT 30.3 mmol/L (22.0-26.0); BG METHEMOGLOBIN 0.1 % (0.0-1.5); BG OXYGEN SATURATION 98.4 % (92.0-98.5); BG OXYHEMOGLOBIN 97.3 % (94.0-97.0); BG PCO2 57.5 mmHg (35.0-45.0); BG PO2 128.2 mmHg (75.0-100.0); BG SAMPLE SITE RIGHT BRACHIAL; BG TOTAL HEMOGLOBIN 9.9 g/dL (12.0-18.0); BG VENT MODE MASK - BIPAP; BG VENT RATE 12 set
[2017-04-07] MEDS: EPOETIN ALFA 4000UNITS/ML VIAL SUBCUT SCH (20:41)
[2017-04-08] VITALS (12 sets, daily range): BP systolic 121–174; BP diastolic 51–87
[2017-04-08] MEDS: IPRATROPIUM/ALBUTEROL 0.5-3(2.5)MG/3ML NEB HHN SCH ×4 (01:35→20:25)
[2017-04-08] MEDS: PIPERACILLIN/TAZ 2.25G PREMIX 50 ML IV SCH ×3 (05:45→22:38)
[2017-04-08] MEDS: METHYLPREDNISOLONE SOD SUCC 40 MG/ML VIAL IV SCH ×3 (05:45→20:55)
[2017-04-08 06:12] LABS: BASOPHILS % 0.2 % (0.0-2.0); EOSINOPHILS % 0.1 % (0.0-5.0); HEMATOCRIT. 25.9 % (42.0-52.0); HEMOGLOBIN. 8.6 g/dL (14.0-18.0); LYMPHOCYTES % 7.9 % (20.0-50.0); MEAN CORPUSCULAR HEMOGLOBIN 32.3 pg (28.0-32.0); MEAN CORPUSCULAR VOLUME 97.4 fL (80.0-94.0); MEAN PLATELET VOLUME 9.6 fl (7.4-10.4); NEUTROPHILS % 88.8 % (40.0-76.0); PLATELET 93 x1000/uL (130-400); RED BLOOD CELL COUNT 2.66 mill/uL (4.7-6.1); RED CELL DISTRIBUTION WIDTH 18.3 % (11.6-14.6)
[2017-04-08] MEDS: SEVELAMER CARBONATE 800 MG TABLET PO SCH ×4 (08:00→17:13)
[2017-04-08] MEDS: ASPIRIN 81MG EC TABLET PO SCH (08:34)
[2017-04-08] MEDS: CARVEDILOL 3.125 MG TABLET PO SCH ×2 (08:34→17:13)
[2017-04-08] MEDS: TAMSULOSIN HCL 0.4MG SR CAPSULE PO SCH (08:34)
[2017-04-08] MEDS: AMLODIPINE 10MG TABLET PO SCH (08:35)
[2017-04-08] MEDS: FINASTERIDE 5MG TABLET PO SCH (08:35)
[2017-04-08] MEDS: ATORVASTATIN CALCIUM 20MG TABLET PO SCH (08:35)
[2017-04-08] MEDS: ALLOPURINOL 100 MG TABLET PO SCH (08:42)
[2017-04-08] MEDS: FOLIC ACID/VITAMIN B COMP W-C TABLET PO SCH ×2 (08:43→08:48)
[2017-04-08 13:25] LABS: BG BASE EXCESS 5.5 mmol/L (-2.0-2.0); BG CARBOXYHEMOGLOBIN 1.2 % (0.5-1.5); BG DEOXYHEMOGLOBIN 2.3 % (0.0-5.0); BG FRACTION INSPIRED OXYGEN 28; BG HCO3 ACT 31.7 mmol/L (22.0-26.0); BG METHEMOGLOBIN 0.3 % (0.0-1.5); BG OXYGEN SATURATION 97.7 % (92.0-98.5); BG OXYHEMOGLOBIN 96.2 % (94.0-97.0); BG PCO2 56.3 mmHg (35.0-45.0); BG PH 7.369 (7.350-7.450); BG PO2 103.6 mmHg (75.0-100.0); BG SAMPLE SITE RIGHT BRACHIAL; BG TOTAL HEMOGLOBIN 8.8 g/dL (12.0-18.0); BG VENT MODE NASAL CANNULA
[2017-04-09] VITALS (13 sets, daily range): BP systolic 134–164; BP diastolic 53–98
[2017-04-09] MEDS: PIPERACILLIN/TAZ 2.25G PREMIX 50 ML IV SCH ×3 (05:45→22:18)
[2017-04-09] MEDS: METHYLPREDNISOLONE SOD SUCC 40 MG/ML VIAL IV SCH ×3 (05:45→22:18)
[2017-04-09 06:41] LABS: HEMATOCRIT. 27.2 % (42.0-52.0); MEAN CORPUSCULAR HEMOGLOBIN 32.1 pg (28.0-32.0); MEAN CORPUSCULAR VOLUME 97.3 fL (80.0-94.0); PLATELET 107 x1000/uL (130-400); RED CELL DISTRIBUTION WIDTH 18.6 % (11.6-14.6)
[2017-04-09] MEDS: IPRATROPIUM/ALBUTEROL 0.5-3(2.5)MG/3ML NEB HHN SCH ×4 (09:29→20:09)
[2017-04-09] MEDS: FOLIC ACID/VITAMIN B COMP W-C TABLET PO SCH (09:40)
[2017-04-09] MEDS: AMLODIPINE 10MG TABLET PO SCH (09:41)
[2017-04-09] MEDS: TAMSULOSIN HCL 0.4MG SR CAPSULE PO SCH (09:42)
[2017-04-09] MEDS: CARVEDILOL 3.125 MG TABLET PO SCH ×2 (09:43→17:54)
[2017-04-09] MEDS: ASPIRIN 81MG EC TABLET PO SCH (09:43)
[2017-04-09] MEDS: ALLOPURINOL 100 MG TABLET PO SCH (09:43)
[2017-04-09] MEDS: SEVELAMER CARBONATE 800 MG TABLET PO SCH ×3 (09:52→17:52)
[2017-04-09] MEDS: FINASTERIDE 5MG TABLET PO SCH (09:53)
[2017-04-09] MEDS: ATORVASTATIN CALCIUM 20MG TABLET PO SCH (09:53)
[2017-04-09 12:43] LABS: PLATELET ESTIMATE SLIGHTLY DECREASED
[2017-04-09] MEDS: EPOETIN ALFA 4000UNITS/ML VIAL SUBCUT SCH (20:38)
[2017-04-09] MEDS: LORAZEPAM 2MG/ML CPJ IV PRN (22:41)
[2017-04-10] VITALS (12 sets, daily range): BP systolic 118–160; BP diastolic 55–75
[2017-04-10] MEDS: METHYLPREDNISOLONE SOD SUCC 40 MG/ML VIAL IV SCH ×3 (05:16→22:05)
[2017-04-10] MEDS: PIPERACILLIN/TAZ 2.25G PREMIX 50 ML IV SCH ×3 (06:08→22:08)
[2017-04-10 06:34] LABS: HEMATOCRIT. 27.5 % (42.0-52.0); HEMOGLOBIN. 8.8 g/dL (14.0-18.0); MEAN CORPUSCULAR VOLUME 96.9 fL (80.0-94.0); MEAN PLATELET VOLUME 9.6 fl (7.4-10.4); PLATELET 97 x1000/uL (130-400); RED BLOOD CELL COUNT 2.84 mill/uL (4.7-6.1); RED CELL DISTRIBUTION WIDTH 18.8 % (11.6-14.6)
[2017-04-10] MEDS ORDERED: SODIUM BICARBONATE 4% (2.4MEQ) 5ML VIAL IV ONE (07:24)
[2017-04-10 08:06] LABS: CHLORIDE 102 mEq/L (98-107)
[2017-04-10] MEDS: IPRATROPIUM/ALBUTEROL 0.5-3(2.5)MG/3ML NEB HHN SCH ×4 (08:16→20:47)
[2017-04-10] MEDS: ASPIRIN 81MG EC TABLET PO SCH (08:57)
[2017-04-10] MEDS: CARVEDILOL 3.125 MG TABLET PO SCH ×2 (08:57→17:33)
[2017-04-10] MEDS: AMLODIPINE 10MG TABLET PO SCH (08:58)
[2017-04-10] MEDS: FINASTERIDE 5MG TABLET PO SCH (08:58)
[2017-04-10] MEDS: ATORVASTATIN CALCIUM 20MG TABLET PO SCH (08:59)
[2017-04-10] MEDS: TAMSULOSIN HCL 0.4MG SR CAPSULE PO SCH (09:00)
[2017-04-10] MEDS: ALLOPURINOL 100 MG TABLET PO SCH (09:00)
[2017-04-10] MEDS: SEVELAMER CARBONATE 800 MG TABLET PO SCH ×3 (09:11→17:32)
[2017-04-10] MEDS: FOLIC ACID/VITAMIN B COMP W-C TABLET PO SCH (09:11)
[2017-04-10] MEDS ORDERED: VANCOMYCIN 1 G PREMIX 200 ML IV NR (12:00)
[2017-04-10] MEDS: LORAZEPAM 2MG/ML CPJ IV PRN ×2 (12:24→23:33)
[2017-04-10 12:27] LABS: PLATELET ESTIMATE DECREASED
[2017-04-11] VITALS (12 sets, daily range): BP systolic 107–139; BP diastolic 52–67
[2017-04-11] MEDS: METHYLPREDNISOLONE SOD SUCC 40 MG/ML VIAL IV SCH ×3 (06:04→22:03)
[2017-04-11] MEDS: PIPERACILLIN/TAZ 2.25G PREMIX 50 ML IV SCH ×3 (06:04→23:36)
[2017-04-11 06:46] LABS: HEMATOCRIT. 25.7 % (42.0-52.0); HEMOGLOBIN. 8.3 g/dL (14.0-18.0); MEAN CORPUSCULAR HEMOGLOBIN 31.3 pg (28.0-32.0); MEAN CORPUSCULAR VOLUME 97.5 fL (80.0-94.0); MEAN PLATELET VOLUME 9.8 fl (7.4-10.4); PLATELET 82 x1000/uL (130-400); RED BLOOD CELL COUNT 2.64 mill/uL (4.7-6.1); RED CELL DISTRIBUTION WIDTH 18.8 % (11.6-14.6)
[2017-04-11 07:23] LABS: CHLORIDE 102 mEq/L (98-107)
[2017-04-11] MEDS: IPRATROPIUM/ALBUTEROL 0.5-3(2.5)MG/3ML NEB HHN SCH ×4 (08:25→20:56)
[2017-04-11] MEDS: ASPIRIN 81MG EC TABLET PO SCH (09:03)
[2017-04-11] MEDS: FINASTERIDE 5MG TABLET PO SCH (09:03)
[2017-04-11] MEDS: ATORVASTATIN CALCIUM 20MG TABLET PO SCH (09:03)
[2017-04-11] MEDS: FOLIC ACID/VITAMIN B COMP W-C TABLET PO SCH (09:03)
[2017-04-11] MEDS: SEVELAMER CARBONATE 800 MG TABLET PO SCH ×3 (09:03→18:05)
[2017-04-11] MEDS: AMLODIPINE 10MG TABLET PO SCH (09:04)
[2017-04-11] MEDS: TAMSULOSIN HCL 0.4MG SR CAPSULE PO SCH (09:04)
[2017-04-11] MEDS: ALLOPURINOL 100 MG TABLET PO SCH (09:04)
[2017-04-11] MEDS: CARVEDILOL 3.125 MG TABLET PO SCH ×2 (09:04→18:08)
[2017-04-11 12:35] LABS: BG BASE EXCESS -1.3 mmol/L (-2.0-2.0); BG CARBOXYHEMOGLOBIN 1.1 % (0.5-1.5); BG DEOXYHEMOGLOBIN 3.9 % (0.0-5.0); BG FRACTION INSPIRED OXYGEN 28; BG HCO3 ACT 25.2 mmol/L (22.0-26.0); BG METHEMOGLOBIN 0.1 % (0.0-1.5); BG OXYGEN SATURATION 96.1 % (92.0-98.5); BG OXYHEMOGLOBIN 94.9 % (94.0-97.0); BG PH 7.304 (7.350-7.450); BG PO2 88.7 mmHg (75.0-100.0); BG SAMPLE SITE RIGHT RADIAL; BG TOTAL HEMOGLOBIN 8.6 g/dL (12.0-18.0); BG VENT MODE NASAL CANNULA
[2017-04-11 13:59] LABS: PLATELET ESTIMATE DECREASED
[2017-04-11] MEDS: LORAZEPAM 2MG/ML CPJ IV PRN (22:43)
[2017-04-12] VITALS (19 sets, daily range): BP systolic 92–135; BP diastolic 45–68
[2017-04-12] MEDS: METHYLPREDNISOLONE SOD SUCC 40 MG/ML VIAL IV SCH ×4 (05:18→22:44)
[2017-04-12] MEDS: PIPERACILLIN/TAZ 2.25G PREMIX 50 ML IV SCH ×3 (06:35→23:41)
[2017-04-12 07:00] LABS: HEMATOCRIT. 23.5 % (42.0-52.0); HEMOGLOBIN. 7.6 g/dL (14.0-18.0); MEAN CORPUSCULAR HEMOGLOBIN 31.5 pg (28.0-32.0); MEAN CORPUSCULAR VOLUME 96.7 fL (80.0-94.0); PLATELET 84 x1000/uL (130-400); RED BLOOD CELL COUNT 2.43 mill/uL (4.7-6.1); RED CELL DISTRIBUTION WIDTH 18.7 % (11.6-14.6)
[2017-04-12] MEDS: ASPIRIN 81MG EC TABLET PO SCH (08:32)
[2017-04-12] MEDS: CARVEDILOL 3.125 MG TABLET PO SCH ×2 (08:32→17:00)
[2017-04-12] MEDS: AMLODIPINE 10MG TABLET PO SCH (08:32)
[2017-04-12] MEDS: ATORVASTATIN CALCIUM 20MG TABLET PO SCH ×2 (08:33→12:05)
[2017-04-12] MEDS: FINASTERIDE 5MG TABLET PO SCH ×2 (08:33→12:05)
[2017-04-12] MEDS: ALLOPURINOL 100 MG TABLET PO SCH ×2 (08:33→12:05)
[2017-04-12] MEDS: TAMSULOSIN HCL 0.4MG SR CAPSULE PO SCH ×2 (08:33→12:04)
[2017-04-12] MEDS: FOLIC ACID/VITAMIN B COMP W-C TABLET PO SCH ×2 (08:33→12:05)
[2017-04-12] MEDS: IPRATROPIUM/ALBUTEROL 0.5-3(2.5)MG/3ML NEB HHN SCH ×4 (08:34→20:33)
[2017-04-12] MEDS: SEVELAMER CARBONATE 800 MG TABLET PO SCH ×3 (08:53→18:03)
[2017-04-12 16:38] LABS: PLATELET ESTIMATE DECREASED
[2017-04-12] MEDS ORDERED: ACETAMINOPHEN 325MG TABLET PO PRN (19:00)
[2017-04-12] MEDS ORDERED: NITROGLYCERIN 0.4MG TABLET SL SL PRN (19:00)
[2017-04-12] MEDS ORDERED: DOCUSATE SODIUM 100MG CAPSULE PO SCH (21:00)
[2017-04-12] MEDS ORDERED: BISACODYL 10MG SUPP PR PRN (21:00)
[2017-04-12] MEDS: EPOETIN ALFA 4000UNITS/ML VIAL SUBCUT SCH (22:54)
[2017-04-13] VITALS (32 sets, daily range): BP systolic 54–160; BP diastolic 17–117
[2017-04-13] MEDS: LORAZEPAM 2MG/ML CPJ IV PRN ×2 (01:01→21:55)
[2017-04-13] MEDS: METHYLPREDNISOLONE SOD SUCC 40 MG/ML VIAL IV SCH ×3 (06:01→21:50)
[2017-04-13 06:37] LABS: HEMATOCRIT. 31.5 % (42.0-52.0); HEMOGLOBIN. 10.2 g/dL (14.0-18.0); MEAN CORPUSCULAR HEMOGLOBIN 30.7 pg (28.0-32.0); MEAN CORPUSCULAR VOLUME 94.7 fL (80.0-94.0); MEAN PLATELET VOLUME 10.2 fl (7.4-10.4); PLATELET 99 x1000/uL (130-400); RED BLOOD CELL COUNT 3.32 mill/uL (4.7-6.1)
[2017-04-13 06:41] LABS: INR 1.1; PROTHROMBIN TIME 11.6 sec (9.4-11.6)
[2017-04-13 07:08] LABS: CHLORIDE 102 mEq/L (98-107)
[2017-04-13] MEDS: SEVELAMER CARBONATE 800 MG TABLET PO SCH ×4 (08:00→18:20)
[2017-04-13] MEDS: ATORVASTATIN CALCIUM 20MG TABLET PO SCH (08:44)
[2017-04-13] MEDS: ALLOPURINOL 100 MG TABLET PO SCH (08:45)
[2017-04-13] MEDS: FOLIC ACID/VITAMIN B COMP W-C TABLET PO SCH (08:45)
[2017-04-13] MEDS: CARVEDILOL 3.125 MG TABLET PO SCH (08:46)
[2017-04-13] MEDS: FINASTERIDE 5MG TABLET PO SCH (08:46)
[2017-04-13] MEDS: AMLODIPINE 5MG TABLET PO SCH (08:46)
[2017-04-13] MEDS: TAMSULOSIN HCL 0.4MG SR CAPSULE PO SCH (08:46)
[2017-04-13] MEDS: IPRATROPIUM/ALBUTEROL 0.5-3(2.5)MG/3ML NEB HHN SCH ×4 (09:09→20:44)
[2017-04-13] MEDS ORDERED: DEXT 5% WATER 500 ML IV ONE (09:15)
[2017-04-13] MEDS ORDERED: LIDOCAINE HCL 1% IV SCH ×2 (10:00)
[2017-04-13] MEDS ORDERED: SODIUM CHLORIDE 0.9% IV SCH ×2 (10:00)
[2017-04-13] MEDS ORDERED: DOXYCYCLINE IV SCH ×2 (10:00)
[2017-04-13] MEDS ORDERED: SKIN ADHESIVE 0.7 GM EA TOP ONE (14:59)
[2017-04-13] MEDS ORDERED: BUPIVACAINE HCL/PF 0.25% (2.5MG/ML) 10ML ONE (14:59)
[2017-04-13] MEDS ORDERED: NORMAL SALINE 0.9% 10 ML SYR ONE (15:00)
[2017-04-13] MEDS ORDERED: BACITRACIN 50,000 UNITS/VIAL ONE (15:00)
[2017-04-13] MEDS ORDERED: ROCURONIUM BROMIDE 10MG/ML VIAL 5ML IV ONE (15:21)
[2017-04-13] MEDS ORDERED: PROPOFOL 200MG/20ML VIAL IV ONE (15:22)
[2017-04-13] MEDS ORDERED: TETRACAINE/BENZOCAINE/BUTAMBEN 20 GM SPRAY MM ONE (15:58)
[2017-04-13] MEDS ORDERED: ALBUMIN HUMAN 12.5GM/50ML (25%) IV ONE (16:17)
[2017-04-13 16:47] LABS: PLATELET ESTIMATE DECREASED
[2017-04-13] MEDS ORDERED: SODIUM CHLORIDE 0.9% 10ML VIAL ONE (17:30)
[2017-04-13] MEDS ORDERED: EPHEDRINE SULFATE 50MG/ML VIAL ONE (17:30)
[2017-04-13 18:43] LABS: BG BASE EXCESS -1.7 mmol/L (-2.0-2.0); BG CARBOXYHEMOGLOBIN 0.5 % (0.5-1.5); BG DEOXYHEMOGLOBIN 1.3 % (0.0-5.0); BG FRACTION INSPIRED OXYGEN 50; BG HCO3 ACT 21.4 mmol/L (22.0-26.0); BG METHEMOGLOBIN 0.4 % (0.0-1.5); BG OXYGEN SATURATION 98.7 % (92.0-98.5); BG OXYHEMOGLOBIN 97.8 % (94.0-97.0); BG PH 7.485 (7.350-7.450); BG PO2 159.9 mmHg (75.0-100.0); BG SAMPLE SITE A-LINE; BG TIDAL VOLUME(mL) 550 mL; BG TOTAL HEMOGLOBIN 7.6 g/dL (12.0-18.0); BG VENT MODE VENT - A/C; BG VENT RATE 12 set
[2017-04-13 19:31] LABS: BASOPHILS % 0.1 % (0.0-2.0); EOSINOPHILS % 0.9 % (0.0-5.0); HEMATOCRIT. 22.8 % (42.0-52.0); HEMOGLOBIN. 7.6 g/dL (14.0-18.0); LYMPHOCYTES % 7.8 % (20.0-50.0); MEAN CORPUSCULAR VOLUME 96.4 fL (80.0-94.0); MEAN PLATELET VOLUME 10.1 fl (7.4-10.4); MONOCYTES % 3.3 % (2.0-8.0); NEUTROPHILS % 87.9 % (40.0-76.0); PLATELET 83 x1000/uL (130-400); RED BLOOD CELL COUNT 2.37 mill/uL (4.7-6.1); RED CELL DISTRIBUTION WIDTH 18.2 % (11.6-14.6)
[2017-04-14] VITALS (79 sets, daily range): BP systolic 64–167; BP diastolic 27–91
[2017-04-14 00:57] LABS: EOSINOPHILS % 0.3 % (0.0-5.0); LYMPHOCYTES % 6.1 % (20.0-50.0); MEAN CORPUSCULAR HEMOGLOBIN 31.2 pg (28.0-32.0); MEAN CORPUSCULAR VOLUME 93.8 fL (80.0-94.0); MEAN PLATELET VOLUME 10.7 fl (7.4-10.4); MONOCYTES % 5.7 % (2.0-8.0); NEUTROPHILS % 87.9 % (40.0-76.0); PLATELET 86 x1000/uL (130-400); RED BLOOD CELL COUNT 2.17 mill/uL (4.7-6.1); RED CELL DISTRIBUTION WIDTH 18.1 % (11.6-14.6)
[2017-04-14 01:02] LABS: HEMATOCRIT. 20.3 % (42.0-52.0); HEMOGLOBIN. 6.8 g/dL (14.0-18.0)
[2017-04-14] MEDS: METHYLPREDNISOLONE SOD SUCC 40 MG/ML VIAL IV SCH ×3 (06:02→23:16)
[2017-04-14] MEDS: MORPHINE SULFATE 4 MG/ML CPJ (NOT FOR IM USE) IV PRN ×2 (06:15→20:55)
[2017-04-14 06:42] LABS: BASOPHILS % 0.4 % (0.0-2.0); EOSINOPHILS % 0.3 % (0.0-5.0); HEMATOCRIT. 25.9 % (42.0-52.0); HEMOGLOBIN. 8.9 g/dL (14.0-18.0); MEAN CORPUSCULAR HEMOGLOBIN 31.5 pg (28.0-32.0); MEAN PLATELET VOLUME 10.4 fl (7.4-10.4); MONOCYTES % 3.3 % (2.0-8.0); PLATELET 88 x1000/uL (130-400); RED BLOOD CELL COUNT 2.81 mill/uL (4.7-6.1); RED CELL DISTRIBUTION WIDTH 15.8 % (11.6-14.6)
[2017-04-14] MEDS: SEVELAMER CARBONATE 800 MG TABLET PO SCH ×3 (08:20→17:39)
[2017-04-14] MEDS: IPRATROPIUM/ALBUTEROL 0.5-3(2.5)MG/3ML NEB HHN SCH ×4 (08:25→20:15)
[2017-04-14] MEDS: AMLODIPINE 5MG TABLET PO SCH ×2 (09:00→17:00)
[2017-04-14] MEDS: CARVEDILOL 3.125 MG TABLET PO SCH ×2 (09:00→17:00)
[2017-04-14 09:58] LABS: BG BASE EXCESS -2.6 mmol/L (-2.0-2.0); BG CARBOXYHEMOGLOBIN 0.4 % (0.5-1.5); BG DEOXYHEMOGLOBIN 3.4 % (0.0-5.0); BG HCO3 ACT 20.3 mmol/L (22.0-26.0); BG METHEMOGLOBIN 0.2 % (0.0-1.5); BG OXYGEN SATURATION 96.6 % (92.0-98.5); BG PCO2 28.4 mmHg (35.0-45.0); BG PH 7.472 (7.350-7.450); BG PO2 88.7 mmHg (75.0-100.0); BG SAMPLE SITE RIGHT BRACHIAL; BG TIDAL VOLUME(mL) 550 mL; BG TOTAL HEMOGLOBIN 9.3 g/dL (12.0-18.0); BG VENT MODE VENT - A/C; BG VENT RATE 12 set
[2017-04-14] MEDS: ATORVASTATIN CALCIUM 20MG TABLET PO SCH (09:58)
[2017-04-14] MEDS: FINASTERIDE 5MG TABLET PO SCH (09:58)
[2017-04-14] MEDS: ALLOPURINOL 100 MG TABLET PO SCH (09:58)
[2017-04-14] MEDS: TAMSULOSIN HCL 0.4MG SR CAPSULE PO SCH (09:59)
[2017-04-14] MEDS: FOLIC ACID/VITAMIN B COMP W-C TABLET PO SCH (09:59)
[2017-04-14 11:45] LABS: BG BASE EXCESS -4.3 mmol/L (-2.0-2.0); BG CARBOXYHEMOGLOBIN 0.4 % (0.5-1.5); BG DEOXYHEMOGLOBIN 5.9 % (0.0-5.0); BG FRACTION INSPIRED OXYGEN 35; BG HCO3 ACT 20.1 mmol/L (22.0-26.0); BG METHEMOGLOBIN 0.3 % (0.0-1.5); BG OXYGEN SATURATION 94.1 % (92.0-98.5); BG OXYHEMOGLOBIN 93.4 % (94.0-97.0); BG PCO2 34.1 mmHg (35.0-45.0); BG PH 7.389 (7.350-7.450); BG PO2 74.7 mmHg (75.0-100.0); BG PRESSURE SUPPORT 10; BG SAMPLE SITE A-LINE; BG TOTAL HEMOGLOBIN 9.4 g/dL (12.0-18.0); BG VENT MODE VENT - CPAP
[2017-04-14 17:13] LABS: BG BASE EXCESS -5.2 mmol/L (-2.0-2.0); BG CARBOXYHEMOGLOBIN 0.5 % (0.5-1.5); BG CPAP (cmH2O) 0 cm(H2O); BG DEOXYHEMOGLOBIN 4.1 % (0.0-5.0); BG HCO3 ACT 19.5 mmol/L (22.0-26.0); BG METHEMOGLOBIN 0.1 % (0.0-1.5); BG OXYGEN SATURATION 95.9 % (92.0-98.5); BG OXYHEMOGLOBIN 95.3 % (94.0-97.0); BG PCO2 34.6 mmHg (35.0-45.0); BG PH 7.369 (7.350-7.450); BG PO2 91.9 mmHg (75.0-100.0); BG SAMPLE SITE A-LINE; BG TOTAL HEMOGLOBIN 9.3 g/dL (12.0-18.0); BG VENT MODE VENT - CPAP
[2017-04-15] VITALS (88 sets, daily range): BP systolic 62–168; BP diastolic 28–84
[2017-04-15] MEDS: METHYLPREDNISOLONE SOD SUCC 40 MG/ML VIAL IV SCH ×3 (05:31→21:19)
[2017-04-15 05:32] LABS: HEMOGLOBIN. 9.2 g/dL (14.0-18.0); MEAN CORPUSCULAR HEMOGLOBIN 31.3 pg (28.0-32.0); MEAN CORPUSCULAR VOLUME 95.1 fL (80.0-94.0); MEAN PLATELET VOLUME 9.6 fl (7.4-10.4); PLATELET 92 x1000/uL (130-400); RED BLOOD CELL COUNT 2.94 mill/uL (4.7-6.1); RED CELL DISTRIBUTION WIDTH 17.7 % (11.6-14.6)
[2017-04-15] MEDS: SEVELAMER CARBONATE 800 MG TABLET PO SCH ×3 (09:14→18:22)
[2017-04-15] MEDS: ATORVASTATIN CALCIUM 20MG TABLET PO SCH (09:21)
[2017-04-15] MEDS: FOLIC ACID/VITAMIN B COMP W-C TABLET PO SCH (09:21)
[2017-04-15] MEDS: TAMSULOSIN HCL 0.4MG SR CAPSULE PO SCH (09:21)
[2017-04-15] MEDS: ALLOPURINOL 100 MG TABLET PO SCH (09:21)
[2017-04-15] MEDS: CARVEDILOL 3.125 MG TABLET PO SCH ×2 (09:21→18:23)
[2017-04-15] MEDS: FINASTERIDE 5MG TABLET PO SCH (09:21)
[2017-04-15] MEDS: AMLODIPINE 5MG TABLET PO SCH ×2 (09:21→18:22)
[2017-04-15] MEDS: IPRATROPIUM/ALBUTEROL 0.5-3(2.5)MG/3ML NEB HHN SCH ×4 (10:03→20:16)
[2017-04-15 11:12] LABS: NUCLEATED RED BLOOD CELLS 1 /100 WBC
[2017-04-15 11:13] LABS: PLATELET ESTIMATE SLIGHTLY DECREASED
[2017-04-15 14:15] LABS: BG BASE EXCESS -6.1 mmol/L (-2.0-2.0); BG CARBOXYHEMOGLOBIN 0.5 % (0.5-1.5); BG DEOXYHEMOGLOBIN 11.4 % (0.0-5.0); BG FRACTION INSPIRED OXYGEN 28; BG HCO3 ACT 20.9 mmol/L (22.0-26.0); BG METHEMOGLOBIN 0.4 % (0.0-1.5); BG OXYGEN SATURATION 88.5 % (92.0-98.5); BG OXYHEMOGLOBIN 87.7 % (94.0-97.0); BG PCO2 48.2 mmHg (35.0-45.0); BG PH 7.254 (7.350-7.450); BG PO2 61.4 mmHg (75.0-100.0); BG SAMPLE SITE A-LINE; BG TOTAL HEMOGLOBIN 8.8 g/dL (12.0-18.0); BG VENT MODE NASAL CANNULA
[2017-04-15] MEDS ORDERED: SODIUM BICARBONATE 8.4% 1 MEQ/ML 50ML SYR IV NR (17:45)
[2017-04-15] MEDS: MORPHINE SULFATE 4 MG/ML CPJ (NOT FOR IM USE) IV PRN (22:16)
[2017-04-16] VITALS (66 sets, daily range): BP systolic 97–176; BP diastolic 35–85
[2017-04-16] MEDS: MORPHINE SULFATE 4 MG/ML CPJ (NOT FOR IM USE) IV PRN ×2 (02:19→23:45)
[2017-04-16] MEDS: METHYLPREDNISOLONE SOD SUCC 40 MG/ML VIAL IV SCH ×3 (06:18→21:32)
[2017-04-16 08:15] LABS: HEMATOCRIT. 24.6 % (42.0-52.0); HEMOGLOBIN. 8.1 g/dL (14.0-18.0); MEAN CORPUSCULAR HEMOGLOBIN 31.5 pg (28.0-32.0); MEAN CORPUSCULAR VOLUME 96.2 fL (80.0-94.0); MEAN PLATELET VOLUME 10.4 fl (7.4-10.4); PLATELET 76 x1000/uL (130-400); RED BLOOD CELL COUNT 2.56 mill/uL (4.7-6.1); RED CELL DISTRIBUTION WIDTH 17.9 % (11.6-14.6)
[2017-04-16] MEDS: IPRATROPIUM/ALBUTEROL 0.5-3(2.5)MG/3ML NEB HHN SCH ×4 (08:35→20:21)
[2017-04-16] MEDS: TAMSULOSIN HCL 0.4MG SR CAPSULE PO SCH (08:51)
[2017-04-16] MEDS: SEVELAMER CARBONATE 800 MG TABLET PO SCH ×3 (08:51→18:20)
[2017-04-16] MEDS: FOLIC ACID/VITAMIN B COMP W-C TABLET PO SCH (08:56)
[2017-04-16] MEDS: ATORVASTATIN CALCIUM 20MG TABLET PO SCH (08:56)
[2017-04-16] MEDS: CARVEDILOL 3.125 MG TABLET PO SCH ×2 (08:57→17:00)
[2017-04-16] MEDS: ALLOPURINOL 100 MG TABLET PO SCH (08:57)
[2017-04-16] MEDS: AMLODIPINE 5MG TABLET PO SCH ×2 (08:57→17:00)
[2017-04-16] MEDS: FINASTERIDE 5MG TABLET PO SCH (08:57)
[2017-04-16 11:06] LABS: NUCLEATED RED BLOOD CELLS 1 /100 WBC; PLATELET ESTIMATE SLIGHTLY DECREASED
[2017-04-17] VITALS (26 sets, daily range): BP systolic 105–148; BP diastolic 39–79
[2017-04-17] MEDS: METHYLPREDNISOLONE SOD SUCC 40 MG/ML VIAL IV SCH ×3 (05:12→21:35)
[2017-04-17] MEDS: IPRATROPIUM/ALBUTEROL 0.5-3(2.5)MG/3ML NEB HHN SCH ×4 (07:39→22:21)
[2017-04-17] MEDS: SEVELAMER CARBONATE 800 MG TABLET PO SCH ×2 (08:20→18:54)
[2017-04-17] MEDS: AMLODIPINE 5MG TABLET PO SCH ×2 (09:00→16:32)
[2017-04-17] MEDS: TAMSULOSIN HCL 0.4MG SR CAPSULE PO SCH (09:00)
[2017-04-17] MEDS: FINASTERIDE 5MG TABLET PO SCH (09:00)
[2017-04-17] MEDS: FOLIC ACID/VITAMIN B COMP W-C TABLET PO SCH (09:00)
[2017-04-17] MEDS: ATORVASTATIN CALCIUM 20MG TABLET PO SCH (09:00)
[2017-04-17] MEDS: CARVEDILOL 3.125 MG TABLET PO SCH ×2 (09:00→16:31)
[2017-04-17] MEDS: ALLOPURINOL 100 MG TABLET PO SCH (09:00)
[2017-04-18] VITALS: BP 122/51
[2017-04-18 04:00] VITALS: BP 109/49
[2017-04-18] MEDS: METHYLPREDNISOLONE SOD SUCC 40 MG/ML VIAL IV SCH ×2 (05:44→14:08)
[2017-04-18 08:00] VITALS: BP 90/41
[2017-04-18] MEDS: AMLODIPINE 5MG TABLET PO SCH ×2 (09:00→17:00)
[2017-04-18] MEDS: FINASTERIDE 5MG TABLET PO SCH (09:00)
[2017-04-18] MEDS: CARVEDILOL 3.125 MG TABLET PO SCH ×2 (09:00→17:00)
[2017-04-18] MEDS ORDERED: SODIUM CHLORIDE 0.9% 250 ML IV SCH (09:14)
[2017-04-18] MEDS ORDERED: SODIUM CHLORIDE 0.9% 250 ML IV ONE (09:15)
[2017-04-18] MEDS: IPRATROPIUM/ALBUTEROL 0.5-3(2.5)MG/3ML NEB HHN SCH ×3 (09:23→17:00)
[2017-04-18] MEDS: TAMSULOSIN HCL 0.4MG SR CAPSULE PO SCH (09:25)
[2017-04-18] MEDS: FOLIC ACID/VITAMIN B COMP W-C TABLET PO SCH (09:25)
[2017-04-18] MEDS: ATORVASTATIN CALCIUM 20MG TABLET PO SCH (09:25)
[2017-04-18] MEDS: SEVELAMER CARBONATE 800 MG TABLET PO SCH ×2 (09:25→14:08)
[2017-04-18] MEDS: ALLOPURINOL 100 MG TABLET PO SCH (09:26)
[2017-04-18] MEDS ORDERED: SODIUM CHLORIDE 0.9% 200 ML IV SCH ×2 (09:27→09:30)
[2017-04-18 12:00] VITALS: BP 85/37
[2017-04-18 16:00] VITALS: BP 102/47
[2017-04-18 20:00] VITALS: BP 89/42
== END 2017-04-19 00:18 | disposition expired | DRG 871 ==
LOC: ER 10:50 → 8WST 12:42 → EDBEDREQ 12:44 → ENRESERV 14:04 → 5EST 04-07 13:56 → CVICU 04-13 18:10 → 7WST 04-17 13:13 → UNDODISIN 04-18 15:25
PROVIDERS: ADMIT Internal Medicine; ATTEND Internal Medicine
PROC: 5A1D70Z Performance of Urinary Filtration, Intermittent, Less than 6 Hours Per Day (ICD-10-PCS; 2017-04-05)
PROC: 5A09357 Assistance with Respiratory Ventilation, Less than 24 Consecutive Hours, Continuous Positive Airway Pressure (ICD-10-PCS; 2017-04-07)
PROC: 5A1D70Z Performance of Urinary Filtration, Intermittent, Less than 6 Hours Per Day (ICD-10-PCS; 2017-04-07)
PROC: 5A1D70Z Performance of Urinary Filtration, Intermittent, Less than 6 Hours Per Day (ICD-10-PCS; 2017-04-09)
PROC: 5A09357 Assistance with Respiratory Ventilation, Less than 24 Consecutive Hours, Continuous Positive Airway Pressure (ICD-10-PCS; 2017-04-11)
PROC: 5A1D70Z Performance of Urinary Filtration, Intermittent, Less than 6 Hours Per Day (ICD-10-PCS; 2017-04-11)
PROC: 30233N1 Transfusion of Nonautologous Red Blood Cells into Peripheral Vein, Percutaneous Approach (ICD-10-PCS; 2017-04-12)
PROC: 0BJ08ZZ Inspection of Tracheobronchial Tree, Via Natural or Artificial Opening Endoscopic (ICD-10-PCS; 2017-04-13)
PROC: 0BBN3ZX Excision of Right Pleura, Percutaneous Approach, Diagnostic (ICD-10-PCS; 2017-04-13)
PROC: 0W9B30Z Drainage of Left Pleural Cavity with Drainage Device, Percutaneous Approach (ICD-10-PCS; 2017-04-13)
PROC: 0BH17EZ Insertion of Endotracheal Airway into Trachea, Via Natural or Artificial Opening (ICD-10-PCS; 2017-04-13)
PROC: 5A1945Z Respiratory Ventilation, 24-96 Consecutive Hours (ICD-10-PCS; principal; 2017-04-13 14:00)
PROC: 5A1D70Z Performance of Urinary Filtration, Intermittent, Less than 6 Hours Per Day (ICD-10-PCS; 2017-04-14)
PROC: 5A1D70Z Performance of Urinary Filtration, Intermittent, Less than 6 Hours Per Day (ICD-10-PCS; 2017-04-15)
PROC: 5A1D70Z Performance of Urinary Filtration, Intermittent, Less than 6 Hours Per Day (ICD-10-PCS; 2017-04-16)
PROC: 5A1D70Z Performance of Urinary Filtration, Intermittent, Less than 6 Hours Per Day (ICD-10-PCS; 2017-04-18)
DX: A41.9 Sepsis, unspecified organism (principal); J96.91 Respiratory failure, unspecified with hypoxia; E43 Unspecified severe protein-calorie malnutrition; G93.40 Encephalopathy, unspecified; I13.2 Hypertensive heart and chronic kidney disease with heart failure and with stage 5 chronic kidney disease, or end stage renal disease; J91.0 Malignant pleural effusion; J18.1 Lobar pneumonia, unspecified organism; D69.6 Thrombocytopenia, unspecified; N18.6 End stage renal disease; C34.92 Malignant neoplasm of unspecified part of left bronchus or lung; N25.81 Secondary hyperparathyroidism of renal origin; C64.9 Malignant neoplasm of unspecified kidney, except renal pelvis; E11.22 Type 2 diabetes mellitus with diabetic chronic kidney disease; E11.40 Type 2 diabetes mellitus with diabetic neuropathy, unspecified; E87.5 Hyperkalemia; N05.9 Unspecified nephritic syndrome with unspecified morphologic changes; D63.8 Anemia in other chronic diseases classified elsewhere; E78.5 Hyperlipidemia, unspecified; I25.10 Atherosclerotic heart disease of native coronary artery without angina pectoris; I25.82 Chronic total occlusion of coronary artery; I49.1 Atrial premature depolarization; I49.3 Ventricular premature depolarization; I50.9 Heart failure, unspecified; M19.90 Unspecified osteoarthritis, unspecified site; N40.0 Benign prostatic hyperplasia without lower urinary tract symptoms; Z51.5 Encounter for palliative care; Z66 Do not resuscitate; Z99.2 Dependence on renal dialysis; I25.2 Old myocardial infarction; Z86.73 Personal history of transient ischemic attack (TIA), and cerebral infarction without residual deficits; Z87.891 Personal history of nicotine dependence; Z88.6 Allergy status to analgesic agent; Z88.1 Allergy status to other antibiotic agents; Z88.8 Allergy status to other drugs, medicaments and biological substances; Z79.82 Long term (current) use of aspirin; Z79.899 Other long term (current) drug therapy; Z68.21 Body mass index [BMI] 21.0-21.9, adult
CPT/HCPCS: 32555; 36415; 36600; 71045; 80048; 80053; 80202; 82375; 82805; 82962; 83605; 83615; 83735; 83880; 84100; 84484; 85025; 85610; 85730; 86850; 86900; 86920; 87040; 87070; 87075; 87116; 87205; 87804; 88108; 88305; 88312; 89050; 93005; 93971; 94002; 94003; 94640; 94660; 94664; 99285; A4216; J0171; J0885; J2060; J2270; J2543; J2704; J2920; J3370; J3490; J7030; J7040; J7050; J7060; J7620; P9016; P9047